=== PATIENT | female | born 1985 | race Caucasian/White ===

== ENCOUNTER 2023-10-24 19:18 | Emergency (ER) | payer OTHER ==
[2023-10-24 19:36] VITALS: BP 161/99; O2SAT 99
--- NOTE | 2023-10-24 19:40 | ED Physician Documentation ---
History of Present Illness - Stated complaint Stated Complaint: EYE REDNESS/SWOLLEN - Chief complaint Chief Complaint: General - History obtained from History obtained from: Patient (38-year-old woman who does not wear contact lenses awoke today with severe left eye redness and drainage. No changes in vision.) PD PAST MEDICAL HISTORY - Past Medical History Past Medical History: Yes Cardiovascular: Hypertension Respiratory: Asthma - Past Surgical History /[employer]: section - Present Medications Home Medications: Ambulatory Orders Medication Instructions Recorded Confirmed Erythromycin Base [Erythromycin 1 appful OP 5XD 7 Days #1 gm 10/24/23 Ophthalmic Ointment] - Allergies Allergies/Adverse Reactions: Allergies Allergy/AdvReac Type Severity Reaction Status Date / Time Penicillins Allergy Rash Verified 10/24/23 19:30 - Social History Does the pt smoke?: No Smoking Status: Never smoker Does the pt drink ETOH?: Yes Does the pt have substance abuse?: No - Immunizations Immunizations are current?: Yes - POLST Patient has POLST: No PD ED PE NORMAL - Vitals Vital signs reviewed: Yes - General General: Alert and oriented X 3, No acute distress - HEENT HEENT: PERRL, EOMI, Other (Moderate left and mild right purulent conjunctivitis, no fluorescein uptake) - Derm Derm: Normal color, Warm and dry, No rash Results - Vitals Vitals: Vital Signs - 24 hr 10/24/23 19:24 Temperature 36.6 C Heart Rate 87 Respiratory 20 Rate Blood Pressure 161/99 H O2 Saturation 99 Oxygen O2 Source Room air Departure - Departure Disposition: 01 Home, Self Care Clinical Impression: Conjunctivitis Qualifiers: Conjunctivitis type: acute Acute conjunctivitis type: bacterial Laterality: bilateral Qualified Code(s): H10.33 - Unspecified acute conjunctivitis, bilateral Condition: Good Record reviewed to determine appropriate education?: Yes Instructions: ED Conjunctivitis Bacterial Follow-Up: Aden Jones MD [Provider Admit Priv/Credential] - Prescriptions: Erythromycin Base [Erythromycin Ophthalmic Ointment] 1 appful OP 5XD 7 Days #1 gm Comments: If not better in the next few days follow-up with an thread winder automatic, 1 is listed on this form. Return for new or worsening symptoms.
[2023-10-24] MEDS: ERYTHROMYCIN OPHTH OINT 1 GM TUBE EACHEYE STA (19:48)
== END 2023-10-24 19:52 | disposition home or self-care (01) ==
LOC: ED 19:18
DX: H10.33 Unspecified acute conjunctivitis, bilateral (principal); B96.89 Other specified bacterial agents as the cause of diseases classified elsewhere; I10 Essential (primary) hypertension; J45.909 Unspecified asthma, uncomplicated
CPT/HCPCS: 99282; 99283; J3490

== ENCOUNTER 2023-10-30 04:15 | Emergency (ER) | payer OTHER ==
[2023-10-30 04:27] VITALS: O2SAT 98
--- NOTE | 2023-10-30 04:50 | ED Physician Documentation ---
PD HPI HEENT - Stated complaint Stated Complaint: SORE THROAT - Chief complaint Chief Complaint: Heent - History obtained from History obtained from: Patient - Additional information Additional information: HPI from patient. Patient complains of sore throat. She was recently diagnosed with sinusitis for which she was prescribed steroids as well as doxycycline. She also was evaluated in this ED 6 days ago for conjunctivitis, prescribed erythromycin ointment. She also had a course of Zithromax in September and another course of doxycycline in August for URI symptoms. Patient presents at this time due to chief complaint of sore throat as well as "losing my voice" (per patient). Denies fevers. Denies shortness of breath, cough. Review of Systems Constitutional: denies: Fever, Chills, Sweats Ears: denies: Ear pain Nose: reports: Congestion Throat: reports: Sore throat PD PAST MEDICAL HISTORY - Past Medical History Past Medical History: Yes Cardiovascular: Hypertension Respiratory: Asthma - Past Surgical History Past Surgical History: Yes /[employer]: section - Present Medications Home Medications: Ambulatory Orders Medication Instructions Recorded Confirmed Erythromycin Base [Erythromycin 1 appful OP 5XD 7 Days #1 gm 10/24/23 Ophthalmic Ointment] HYDROcod/ACETAM 5/325 [Walton 5/325] 1 - 2 tablet PO Q6H PRN #14 tablet 10/30/23 - Allergies Allergies/Adverse Reactions: Allergies Allergy/AdvReac Type Severity Reaction Status Date / Time Penicillins Allergy Rash Verified 10/30/23 04:25 - Social History Does the pt smoke?: No Smoking Status: Never smoker Does the pt drink ETOH?: Yes Does the pt have substance abuse?: No - Immunizations Immunizations are current?: Yes - POLST Patient has POLST: No PD ED PE NORMAL - Vitals Vital signs reviewed: Yes - General General: Alert and oriented X 3, No acute distress, Well developed/nourished, Other (whispery voice) - HEENT HEENT: Moist mucous membranes, Other (mild posterior o/p erythema without overt edema) - Neck Neck: Supple, no meningeal sign - Respiratory Respiratory: No respiratory distress, Clear bilaterally Results - Vitals Vitals: Oxygen O2 Source Room air - Labs Labs: Microbiology 10/30/23 04:47 Group A Strep Throat Culture - Final Throat Beta Hemolytic Strep Group C Laboratory Tests 10/30/23 10/30/23 04:47 04:47 Nasal Adenovirus (PCR) NOT DETECTED Nasal B. parapertussis DNA (PCR) NOT DETECTED Nasal Coronavir 229E PCR NOT DETECTED Nasal Coronavir HKU1 PCR NOT DETECTED Nasal Coronavir NL63 PCR NOT DETECTED Nasal Coronavir OC43 PCR NOT DETECTED Nasal Enterovir/Rhinovir PCR NOT DETECTED Nasal Influenza B PCR NOT DETECTED Nasal Influenza A PCR NOT DETECTED Nasal Parainfluen 1 PCR NOT DETECTED Nasal Parainfluen 2 PCR NOT DETECTED Nasal Parainfluen 3 PCR NOT DETECTED Nasal Parainfluen 4 PCR NOT DETECTED Nasal RSV (PCR) NOT DETECTED Nasal B.pertussis DNA PCR NOT DETECTED Nasal C.pneumoniae (PCR) NOT DETECTED Rafy Human Metapneumo PCR NOT DETECTED Nasal M.pneumoniae (PCR) NOT DETECTED Nasal SARS-CoV-2 (PCR) NOT DETECTED Group A Strep Rapid Negative PD Medical Decision Making - ED course Complexity details: reviewed results, re-evaluated patient, considered differential, d/w patient ED course: Rapid strep negative, respiratory PCR panel negative for the viruses tested on this panel. Results reviewed with patient. She is already taking prednisone, otherwise would consider giving a dose of Decadron in the ED for the pharyngitis. Similarly, at this time, there is no indication for antibiotic for the sore throat, and she already has what should be good coverage of the usual bacterial causes of sinusitis as well as bacterial pharyngitis with the doxycycline. The only other potential treatment in this case would be to affect adequate analgesia. The patient says she has not had adequate relief of the sore throat with [id number] medications. Patient drove to the emergency department, and thus, considering pharmacies will be open within the next couple of hours, I have electronically submitted a prescription for Vicodin to the patient's pharmacy of choice. Advised to follow-up with PCP within 2 to 3 days. Return precautions were also reviewed. Departure - Departure Disposition: 01 Home, Self Care Clinical Impression: Pharyngitis Qualifiers: Pharyngitis/tonsillitis etiology: unspecified etiology Qualified Code(s): J02.9 - Acute pharyngitis, unspecified Condition: Good Instructions: ED Pharyngitis Viral Report Pending Prescriptions: HYDROcod/ACETAM 5/325 [Walton 5/325] 1 - 2 tablet PO Q6H PRN #14 tablet PRN Reason: Pain Comments: You tested negative for strep, and the nasal swab tested negative for several different viruses that are tested for on this panel (including COVID, influenza, RSV). The exact cause of your symptoms is not apparent at this time, but based on your description of symptoms and findings on the physical exam, I suspect a viral illness. If there is a bacterial cause, the doxycycline would likely lead to improvement. In the meantime, I have electronically submitted a prescription for Vicodin (narcotic/opiate pain medication) to the [facility] pharmacy in [place]. I am prescribing a short course of narcotic pain medication for you. These are potentially dangerous and addictive medications that should be used carefully. These medications may constipate you. Take an [id number] stool softener (docusate) twice daily with plenty of water while taking these medications. If you go 24 hours without a bowel movement, take [id number]-[id number] miralax, per package instructions. Do not drink or drive while taking these medications. If you received narcotic or sedating medications while in the emergency department, do not drive for 24 hours. Store this medication in a safe, secure place and out of reach of children. It is a violation of federal law to give or sell this medication to another person or to use in a manner other than prescribed. The ED will not refill narcotic prescriptions, including prescriptions lost or stolen. To dispose of unwanted medications: 1. [facility] [address] in [place] has a medication drop box. They accept prescription medications (in pill form) Friday through Friday 9:00 a.m. to 5:00 p.m. 2. The [facility] [employer] accepts prescription medications (in pill form only) for disposal year round. Call for more information. 3. Contact the [facility] for the next [facility] sponsored prescription drug collection event. , [phone], or [phone]; Forms: Activity restrictions Discharge Date/Time: 10/30/23 06:57
[2023-10-30 05:07] LABS: RAPID STREP SCREEN Negative (Negative)
[2023-10-30 06:05] LABS: B. PARAPERTUSSIS- RESP PCR PAN NOT DETECTED; B. PERTUSSIS- RESP PCR PANEL NOT DETECTED; C. PNEUMONIAE- RESP PCR PANEL NOT DETECTED; CORONAVIRUS 229E-RESP PCR NOT DETECTED; CORONAVIRUS HKU1-RESP PCR NOT DETECTED; CORONAVIRUS NL63-RESP PCR NOT DETECTED; CORONAVIRUS OC43-RESP PCR NOT DETECTED; HUMAN METAPNEUMOVIRUS NOT DETECTED; INFLUENZA A- RESP PCR PANEL NOT DETECTED; INFLUENZA B - RESP PCR PANEL NOT DETECTED; M. PNEUMONIAE- RESP PCR PANEL NOT DETECTED; PARAINFLUENZA VIRUS 1 NOT DETECTED; PARAINFLUENZA VIRUS 2 NOT DETECTED; PARAINFLUENZA VIRUS 3 NOT DETECTED; PARAINFLUENZA VIRUS 4 NOT DETECTED; RHINOVIRUS/ENTEROVIRUS NOT DETECTED; RSV- RESP PCR PANEL NOT DETECTED; SARS-CoV-2 -RESP PCR PANEL NOT DETECTED
[2023-10-30 06:58] VITALS: BP 153/52
== END 2023-10-30 06:57 | disposition home or self-care (01) ==
LOC: ED 04:15
DX: J02.9 Acute pharyngitis, unspecified (principal); I10 Essential (primary) hypertension; J45.909 Unspecified asthma, uncomplicated
CPT/HCPCS: 87070; 87077; 87430; 87633; 99283